=== PATIENT | male | born 1950 | race Caucasian/White ===

== ENCOUNTER 2017-07-23 09:47 | Emergency (ER) | payer MEDICARE, OTHER ==
[~2017-07-23] VITALS: Ht 180.3 cm; Wt 88.6 kg
[2017-07-23 09:52] VITALS: BP 123/76; PULSE 77; RESP 14; O2SAT 100
--- NOTE | 2017-07-23 10:05 | ED.REPORT ---
HPI-General Illness Date of Service Jul 23, 2017 ED Provider: Akash Gillis MD Pt is a 67 y/o male w/ a hx of current UTI presenting to the ED c/o of urinary retention. The patient had a [facility] catheter placed 2 weeks ago because of urinary retention and this was removed 1 week ago. He is unsure about the etiology behind his urinary retention. His urologist is Neil Benitez. He was seen at [facility] yesterday for UTI-like symptoms, decreased urination and fever and was diagnosed with a UTI and given an injection of Rocephin and prescription for Ciprofloxacin which he hasn't filled yet. The patient was called by Urgent Care today and was told to go to the ED because his WBC count was elevated. He told her that he was still having urinary symptoms (including retention) and was told to come to the ED for further evaluation. He denies abdominal pain, vomiting. A post void residual was not performed at urgent care yesterday nor today place a [facility] catheter. Nursing Notes Stated Complaint: URINARY ISSUE/ SENT BY URGENT CARE Chief Complaint: Male Abdominal Pain Nursing Notes Reviewed: Yes Allergies: Coded Allergies: No Known Allergies (Unverified , 07/23/17) Scheduled Tamsulosin (Flomax) 0.4 Mg Capsule 0.4 MG PO DAILY General Time Seen by MD: 10:02 Chief Complaint Other (UTI) Hx Obtained From: Patient Arrived By: Walk-in Sudden in Onset?: No Onset Occurred: Yesterday Symptom Duration: Since onset Severity: Current: No pain currently Severity: Maximum: No pain Recent Healthcare: Recent doctor visit, Recent testing, Previous diagnosis, Prior workup Similar Sx Previous: Yes Past Medical History Past Medical History Urinary retention of unclear etiology Hx UTI Past Surgical History Kaiser catheter placement Smoking History Unknown if Ever Smoker Ambulatory Status Independent Review of Systems Full Review of Systems Constitutional: Reports: Fever, Malaise GI: Denies: Abdominal pain, Vomiting Male: Reports Dysuria, Reports Urinary frequency, Reports Urination decreased Complete sys rev & neg: except as marked. Physical Exam Vital Signs Vital Signs Date Time Temp Pulse Resp B/P Pulse Ox O2 Delivery O2 Flow Rate FiO2 07/23/17 09:52 36.4 77 14 123/76 100 Room Air Initial VS: Reviewed, Vital signs normal Head / Eyes: Atraumatic, Normocephalic ENT: Mucous membranes moist, Conjunctiva normal Neck: Full range of motion Respiratory: Breath sounds normal, Clear to auscultation, No respiratory distress Cardiovascular: Regular rate & rhythm, Heart sounds normal, Intact distal pulses Extremities: Vascular intact, Neuro intact, No swelling Skin: Warm, Dry, No cyanosis Neurologic: Alert, Oriented, Nonfocal Psychiatric: Mood/affect normal, Behavior normal, Normal thought content General/Constitutional: Awake, Alert, No acute distress, Well appearing, Cooperative, Not toxic appearing Abdomen: Atraumatic, Soft, Non-tender, No guarding, No rebound, No distention, No palpable mass Back: Full range of motion, Painless range of motion, No CVA tenderness Male Genitourinary: Atraumatic, Inspection NL, Penis NL (circumcised), No penile discharge, No meatal blood, Testes NL, No mass, No hernia Normal testicular lie Interpretation & Diagnostics Lab Results Interpretation Result Diagram: 07/23/17 1034 07/23/17 1034 Test 07/23/17 10:34 07/23/17 10:59 07/23/17 11:00 White Blood Count 19.2th/mm3 (3.8-10.1) Red Blood Count 4.46mil/mm3 (4.40-5.80) Hemoglobin 13.2g/dL (13.8-17.2) Hematocrit 39.0% (41.0-50.0) Mean Corpuscular Volume 87.4fL (81-100) Mean Corpuscular Hemoglobin 29.6pg (27.0-35.0) Mean Corpuscular Hemoglobin Concent 33.8% (32.0-37.0) Red Cell Distribution Width 14.4% (12.3-15.4) Platelet Count 167bil/L (150-400) Neutrophils (%) (Auto) 88.7% (40-74) Lymphocytes (%) (Auto) 4.3% (14-46) Monocytes (%) (Auto) 6.5% (4-12) Eosinophils (%) (Auto) 0.1% (0-5) Basophils (%) (Auto) 0.1% (0-3) Sodium Level 136mEq/L (134-144) Potassium Level 3.4mEq/L (3.5-5.2) Chloride Level 98mEq/L (97-108) Carbon Dioxide Level 23mmol/L (18-29) Blood Urea Nitrogen 16mg/dL (8-27) Creatinine 0.88mg/dL (0.76-1.27) Estimat Glomerular Filtration Rate 92mL/min (>59) Glucose Level 117mg/dL (60-99) Calcium Level 8.8mg/dL (8.5-10.1) Total Bilirubin 0.8mg/dL (0.0-1.2) Aspartate Amino Transf (AST/SGOT) 14U/L (0-50) Alanine Aminotransferase (ALT/SGPT) 13U/L (0-44) Alkaline Phosphatase 65U/L (25-160) Total Protein 7.2g/dL (6.4-8.4) Albumin 3.7g/dL (3.4-5.0) Urine Color Yellow (YELLOW) Urine Appearance Cloudy (CLEAR,HAZY) Urine pH 6.0 (5.0-8.0) Urine Specific Walsh 1.005 (1.003-1.035) Urine Protein Negativemg/dL (NEG,TRACE) Urine Glucose (UA) Negativemg/dL (NEGATIVE) Urine Ketones Negativemg/dL (NEGATIVE) Urine Occult Blood Small (NEGATIVE) Urine Nitrite Positive (NEGATIVE) Urine Bilirubin Negative (NEGATIVE) Urine Urobilinogen 1.0mg/dL (NORMAL) Urine Leukocyte Esterase Large (NEGATIVE) Urine RBC 0-2/hpf (0-2) Urine WBC 11-50/hpf (0-5) Urine Epithelial Cells None/hpf (NONE-MOD) Urine Crystals None seen (NONE SEEN) Urine Bacteria Few/hpf (NONE-FEW) Urine Hyaline Casts None/lpf (NONE) Urine Granular Casts None seen (NONE SEEN) Urine Waxy Casts None seen (NONE SEEN) Urine Red Blood Cell Casts None seen (NONE SEEN) Urine White Blood Cell Casts None seen (NONE SEEN) Urine Mucus Present (None Seen) Urine Trichomonas None seen (NONE SEEN) Urine Yeast None (NONE SEEN) Urinalysis Comment None Urine Culture Reflexed Indicated Hold [place] Top Tube Received (Received) Re-Eval/Medical Decision Med Decision/Clinical Course Pt is a 67 y/o male w/ a hx of current UTI presenting to the ED c/o of urinary retention. The patient had a [facility] catheter placed 2 weeks ago because of urinary retention and this was removed 1 week ago. He is unsure about the etiology behind his urinary retention. His urologist is Neil Benitez. He was seen at [facility] yesterday for UTI-like symptoms, decreased urination and fever and was diagnosed with a UTI and given an injection of Rocephin and prescription for Ciprofloxacin which he hasn't filled yet. The patient was called by Urgent Care today and was told to go to the ED because his WBC count was elevated. He told her that he was still having urinary symptoms (including retention) and was told to come to the ED for further evaluation. He denies abdominal pain, vomiting. A post void residual was not performed at urgent care yesterday nor today place a [facility] catheter. Here in the emergency department the patient is afebrile with stable vital signs and examination as above. I reviewed the patient's urgent care note from yesterday at which time urinalysis revealed findings consistent with UTI and he was started on antibiotics. Post void residual: 1 L Labs notable as below: CBC: Leukocytosis of 19.2, HCT of 29 CMP: unremarkable Urine: cloudy, positive nitrites, 11-50 WBCs, consistent with ongoing UTI Patient's presentation is consistent with urinary tract infection given his urinalysis as above. I do not see any prior urine cultures available and it appears that he has been given a 2 week course of antibiotics. His overall presentation however is also concerning for bladder outlet obstruction. Postvoid residual revealed that he had 1 L of urine in his bladder and after placement of a [facility] catheter he drained 1.3 L of clear yellow urine and reported dramatic symptomatic improvement. The patient has no percussive flank tenderness, he is not nauseous or vomiting, he is hemodynamically stable/ nontoxic in appearance. He is noted to have a large leukocytosis though in the absence of fever or other signs of systemic illness I do not feel that this necessarily requires additional workup or admission to the hospital. His presentation is consistent with urinary retention and urinary tract infection in the setting of his recent indwelling Kaiser catheter. I discussed the patient with his urologist office and they would like to see him early next week. He will be discharged with an indwelling [facility] catheter and will be started on Rocephin. He will fill and start taking his ciprofloxacin prescription. All patient questions were answered and he is comfortable with this plan. Prior to discharge follow-up and return precautions were reviewed in detail with the patient who verbalized understanding and agreement with the plan. The patient was discharged in stable condition. Time of Eval: 11:58 Re-Evaluation/Progress Note: Pt rechecked. Informed pt of plan for discharge. Pt understands and agrees with plan for discharge. F/U instructions and RTER warnings given. All questions addressed. Consultation : Referral / Consult Name: Rozina Poole PA-C Consulted With: Urology Call Returned at: 11:44 It Administrator: Agrees with eval, Agrees with plan Note: Recommends d/c with indwelling Kaiser. He should start taking his abx. Start on Flomax. Counseled Regarding: Diagnosis, Lab results, Need for follow-up, When/why to return to ED Discharge & Departure Primary Impression: UTI (urinary tract infection) Urinary tract infection type: site unspecified Hematuria presence: without hematuria Qualified Code: N39.0 - Urinary tract infection, site not specified Additional Impressions: Bladder outlet obstruction Leukocytosis Leukocytosis type: unspecified Qualified Code: D72.829 - Elevated white blood cell count, unspecified Disposition: Home Discharge Condition All VS Reviewed: Yes Condition: Stable Patient Instructions: [facility] Catheter Placement and Care (ED), Urinary Retention in Men (ED) Additional Instructions: Thank you for seeking care at the emergency room. It is difficult for us to make definitive diagnoses in the ED but we believe that you are experiencing a UTI. Our primary goal today in the Emergency Department was to evaluate you for any life-threatening conditions. Your evaluation was reassuring. I discussed your case with a urologist branch operations specialist for Dr. Benitez today. She recommended you begin taking the previously prescribed antibiotics and start taking Flomax which I have prescribed. You should follow-up with Dr. Bneitez within 1 week. Call to schedule an appointment. You should return to the Emergency Department immediately if you develop fevers , vomiting, abdominal pain, flank pain, back pain, lightheadedness, weakness, urinary retention, if you catheter becomes clogged, or any other concerning signs or symptoms. Thank you for letting us partake in your care today. Referrals: Neil Benitez MD [employer] Portions of this note were transcribed by Mode Belcher. I, Dr. Gillis personally performed the history, physical exam and medical decision-making; I reviewed and confirmed the accuracy of the information in the transcribed note. copies to: Neil Benitez MD, Beck O MD Jul 23, 2017 10:05 MODE BELCHER Jul 23, 2017 10:22
[2017-07-23 11:07] LABS: BASOPHILS % (AUTO) 0.1 % (0-3); EOSINOPHILS % (AUTO) 0.1 % (0-5); MONOCYTES % (AUTO) 6.5 % (4-12); Mean Corpuscular Hemoglobin 29.6 pg (27.0-35.0); Mean Corpuscular Volume 87.4 fL (81-100); NEUTROPHILS % (AUTO) 88.7 % (40-74); Platelet Count 167 bil/L (150-400)
[2017-07-23] MEDS ORDERED: TAMS0.4C98 PO (11:42)
[2017-07-23 11:46] LABS: APPEARANCE,URINE CLOUDY (CLEAR,HAZY); COLOR,URINE YELLOW (YELLOW); OCCULT BLOOD,URINE SMALL (NEGATIVE)
[2017-07-23 12:43] VITALS: BP 113/74; PULSE 66; O2SAT 99
== END 2017-07-23 12:46 | disposition home or self-care (01) ==
LOC: SED 09:47
DX: N39.0 Urinary tract infection, site not specified (principal); B96.5 Pseudomonas (aeruginosa) (mallei) (pseudomallei) as the cause of diseases classified elsewhere; N32.0 Bladder-neck obstruction; D72.829 Elevated white blood cell count, unspecified; Z87.440 Personal history of urinary (tract) infections